=== PATIENT | female | born 1990 | race Hispanic/Latino ===

== ENCOUNTER 2021-07-24 22:37 | Emergency (ER) | payer SELFPAY ==
[2021-07-24] MEDS ORDERED: Orphenadrine Citrate 60 MG/2 ML VIAL ONE (23:05)
== END 2021-07-24 23:38 | disposition home or self-care (01) ==
LOC: MADERS 22:37
DX: M79.651 Pain in right thigh (principal)
CPT/HCPCS: 72170; 96372; J2360

== ENCOUNTER 2021-08-07 20:48 | Emergency (ER) | payer SELFPAY ==
[2021-08-07 22:34] LABS: Bilirubin Negative (Negative); Blood, Urine Large (Negative); Glucose, Urine (Dipstick) Negative (Negative); Ketone, Urine Negative (Negative); Leukocyte Small (Negative); Nitrite Negative (Negative); Protein, Urine (Dipstick) Negative (Neg-Trace); Specific Gravity, Urine 1.025 (1.005-1.030); Urobilinogen 0.2 mg/dL (Less than 2)
[2021-08-07 22:43] LABS: Clarity Hazy (Clear)
[2021-08-07 22:47] LABS: Bacteria/HPF Rare-Few HPF (None Seen)
[2021-08-07] MEDS ORDERED: cefTRIAXone\\ROCEPHIN 1 GM VIAL ONE (22:54)
[2021-08-07] MEDS ORDERED: Lidocaine 1% (PF) 30 ML VIAL ONE (23:02)
[2021-08-08 18:18] LABS: Chlamydia by PCR Not Detected (NotDetected); GC by PCR Not Detected (NotDetected)
== END 2021-08-07 23:21 | disposition short-term general hospital (02) ==
LOC: MADERS 20:48
DX: O23.10 Infections of bladder in pregnancy, unspecified trimester (principal); N30.00 Acute cystitis without hematuria; O99.210 Obesity complicating pregnancy, unspecified trimester; E66.9 Obesity, unspecified; Z3A.00 Weeks of gestation of pregnancy not specified
CPT/HCPCS: 81003; 81015; 84702; 87086; 87480; 87491; 87510; 87591; 87660; 96372; 99284; J0696; J2001